=== PATIENT | male | born 1980 | race Caucasian/White ===

== ENCOUNTER → 2020-01-31 | Outpatient (CLI) | payer BC, OTHER ==
[~2020-01-31] MED LIST: GENTAMICIN OPTHA3 GM OP; NO HOME MEDICATIONS; PERCOCET 5/321 UDTAB PO
== END ==
LOC: COL.RAD 09:40
DX: M47.22 Other spondylosis with radiculopathy, cervical region (principal); Z85.47 Personal history of malignant neoplasm of testis
CPT/HCPCS: A9585

== ENCOUNTER 2020-02-04 13:18 | Emergency (ER) | payer SELFPAY ==
[~2020-02-04] VITALS: Ht 185.4 cm; Wt 95.5 kg
[2020-02-04 13:29] VITALS: BP 134/84; TEMP 98.8
[2020-02-04 14:30] VITALS: PULSE 87
== END 2020-02-04 14:32 | disposition home or self-care (01) ==
LOC: COL.ER 13:18
DX: S61.412A Laceration without foreign body of left hand, initial encounter (principal); Z88.2 Allergy status to sulfonamides; W26.8XXA Contact with other sharp object(s), not elsewhere classified, initial encounter; Y99.0 Civilian activity done for income or pay